=== PATIENT | female | born 2000 | race Native Hawaiian/Other Pacific Islander ===

== ENCOUNTER → 2020-09-29 | Outpatient (CLI) | payer OTHER ==
--- NOTE | 2020-09-29 15:22 | US ---
EXAMINATION TYPE: US OB anatomy transabd DATE OF EXAM: 09/29/2020 COMPARISON: NONE HISTORY: O36.62X0 LARGE FOR DATES LGA TECHNIQUE: Transabdominal (TA) EXAM MEASUREMENTS: GESTATIONAL AGE / DATING Physician Established: (25 weeks/3 days) EDC: 01/09/21 Dates by LMP: (25 weeks/3 days) EDC: 01/09/21 Dates by First Scan: no prior Dates by Current Scan for: (26 weeks/0 days) EDC: 01/05/21 SURVEY IUP: Single PLACENTA: Anterior PREVIA: No previa KANDI: 11.2 cm Normal CERVICAL LENGTH (transabdominal: norm > 3.0cm): 3.7 cm BIOMETRY PRESENTATION: Vertex LIE: Longitudinal BPD: 6.4 cm 25 weeks / 6 days HC: 24.0 cm 26 weeks / 1 days AC: 21.3 cm 25 weeks / 6 days FL: 4.7 cm 25 weeks / 5 days ESTIMATED WEIGHT IN GRAMS: 851 grams ESTIMATED WEIGHT IN LBS/OZ: 1 lbs. 14 oz. WEIGHT PERCENTAGE BASED ON ESTABLISHED DATE: 55 % HC/AC: 1.13 Normal FL/AC: 22% Normal HEART RATE: 135 bpm RHYTHM: Normal ANATOMY SEEN (within normal limits): * Lateral Vent (< 1 cm) 0.5 cm * Cisterna Magna (< 1.1 cm) 0.7 cm * Cerebellum (varies with age) 2.8 cm Choroid Plexus (bilateral) Midline Falx Cavus Septi Pellucidi Four Chamber Heart Outflow tracts: LVOT/RVOT Stomach Situs Nose / Lips Diaphragm Bladder Cord Insert Three Vessel Cord Longitudinal Spine Transverse Spine Arms (bilateral) Legs (bilateral) ANATOMY SEEN (does not appear within normal limits): Kidneys (bilateral) - dilated renal pelvis bilaterally = 0.4cm No abnormal cervical thickening. Single live intrauterine gestation is present. Normal cephalad prese ntation. biometry measurements congruent and within normal limits. No placenta previa. Calculat ed amniotic fluid index within normal limits. Mild to moderate bilateral pyelocaliectasis otherwise D etailed anatomical survey otherwise shows no obvious abnormality during real-time scanning. Still kartik ges saved show no obvious abnormality. Difficulty visualizing cardiac outflow tracts without cine cli ps. IMPRESSION: As above.
== END | disposition home or self-care (01) ==
LOC: RADUSWWP 13:40
PROVIDERS: ATTEND Obstetrics & Gynecology
DX: O99.891 Other specified diseases and conditions complicating pregnancy (principal); N28.89 Other specified disorders of kidney and ureter; Z3A.26 26 weeks gestation of pregnancy
CPT/HCPCS: 76811

== ENCOUNTER → 2020-12-10 | Outpatient (CLI) | payer OTHER ==
--- NOTE | 2020-12-11 13:13 | US ---
EXAMINATION TYPE: US OB >= 14 wk fetus DATE OF EXAM: 12/10/2020 COMPARISON: 09/29/2020 CLINICAL HISTORY: 20-year-old female O36.63X0 Large for dates > 35 Weeks. Large for dates TECHNIQUE: Transabdominal (TA) GESTATIONAL AGE / DATING Physician Established: (35 weeks/5 days) EDC: 01/09/2021 Dates by LMP: (35 weeks/5 days) EDC: 01/09/2021 Dates by First Scan: (36 weeks/2 days) EDC: 01/05/2021 Dates by Current Scan: (35 weeks/6 days) EDC: 01/08/2021 FINDINGS: SURVEY IUP: Single PLACENTA: Anterior PREVIA: No Previa KANDI: 13.9 cm Normal CERVICAL LENGTH (transabdominal: norm > 3.0cm): Not well visualized BIOMETRY PRESENTATION: Vertex LIE: Longitudinal BPD: 8.9 cm 36 weeks / 1 days HC: 31.4 cm 35 weeks / 2 days AC: 32.7 cm 36 weeks / 5 days FL: 6.8 cm 35 weeks / 0 days ESTIMATED WEIGHT IN GRAMS: 2815 grams ESTIMATED WEIGHT IN LBS/OZ: 6 lbs. 3 oz. WEIGHT PERCENTAGE BASED ON ESTABLISHED DATES: 43% HC/AC: .96 cm Normal FL/AC: 21% Normal HEART RATE: 144 bpm RHYTHM: Normal IMPRESSION: 1. Single live intrauterine pregnancies with estimated gestational age of 35 weeks 5 days by LMP. [facility] ultrasound biometry is concordant at 35 weeks 6 days (only 3 days less growth than expected comp ared to 09/29/2020). 2. EFW is 43% versus 55% on 09/29/2020.
== END | disposition home or self-care (01) ==
LOC: RADUSWWP 15:33
PROVIDERS: ATTEND Obstetrics & Gynecology
DX: O36.63X0 Maternal care for excessive fetal growth, third trimester, not applicable or unspecified (principal); Z3A.35 35 weeks gestation of pregnancy
CPT/HCPCS: 76805

== ENCOUNTER 2021-01-07 06:00 | Inpatient (IN) | payer OTHER ==
[2021-01-07] MEDS ORDERED: METHYLERGONOVINE 0.2 MG/ML 1 ML AMP IM PRN (07:10)
[2021-01-07] MEDS ORDERED: CARBOPROST TROMETHAMINE 250 MCG/ML 1 ML AMP IM PRN (07:10)
[2021-01-07] MEDS ORDERED: OXYTOCIN 10 UNIT/ML 1 ML VIAL IM PRN (07:10)
[2021-01-07] MEDS ORDERED: LIDOCAINE 0.5% (PF) 5 MG/ML (50 ML SDV) SQ PRN (07:10)
[2021-01-07] MEDS ORDERED: TERBUTALINE 1 MG/ML VIAL SQ PRN (07:10)
[2021-01-07] MEDS ORDERED: OXYTOCIN 30 UNITS/500 ML NS 30 UNIT in SALINE 1 500ML.BAG IV SCH (07:15)
[2021-01-07 07:28] LABS: Basophils % (A) 0 %; Eosinophils # (A) 0.3 k/uL (0-0.7); Eosinophils % (A) 2 %; HCT 37.2 % (34.0-46.0); HGB 12.8 gm/dL (11.4-16.0); Lymphocytes % (A) 23 %; MCH 30.8 pg (25.0-35.0); MCHC 34.5 g/dL (31.0-37.0); MCV 89.3 fL (80.0-100.0); Mean Platelet Volume 8.3; Monocytes # (A) 0.6 k/uL (0-1.0); Monocytes % (A) 5 %; Neutrophils # (A) 9.1 k/uL (1.3-7.7); Neutrophils % (A) 68 %; Platelet Count 270 k/uL (150-450); RBC 4.17 m/uL (3.80-5.40); RDW 12.9 % (11.5-15.5); WBC 13.3 k/uL (3.8-10.6)
[2021-01-07] MEDS: LACTATED RINGERS 1,000 ML IV SCH ×3 (07:31→14:39)
[2021-01-07] MEDS ORDERED: BENZOCAINE/MENTHOL SPRAY 1 GM/SPRAY AEROSOL TOPICAL PRN (17:17)
[2021-01-07] MEDS ORDERED: ZOLPIDEM 5 MG TAB PO PRN (17:17)
[2021-01-07] MEDS ORDERED: diphenhydrAMINE 25 MG CAP PO PRN (17:17)
[2021-01-07] MEDS ORDERED: diphenhydrAMINE 50 MG/ML 1 ML VIAL IVP PRN ×2 (17:17)
[2021-01-07] MEDS ORDERED: LANOLIN CREAM 5 GM TUBE TOPICAL PRN (17:17)
[2021-01-07] MEDS ORDERED: HYDROCORTISONE 2.5% RECTAL CREAM 30 GM TUBE RECTAL PRN (17:17)
[2021-01-07] MEDS ORDERED: diphenhydrAMINE 50 MG CAP PO PRN (17:17)
[2021-01-07] MEDS ORDERED: HYDROcodone/APAP 5-325MG 1 EACH TAB PO PRN (17:17)
[2021-01-07] MEDS ORDERED: SIMETHICONE 80 MG CHEWABLE PO PRN (17:17)
--- NOTE | 2021-01-07 17:20 | P.HPOB ---
History of Present Illness H&P Date: 01/07/21 Chief Complaint: Intrauterine at term: Induction of labor Patient is 20-year-old female at 39 weeks 5 days gestation who arrives for induction of labor. Her was, K by a great 3 placenta that she had nonstress tests the latter part of the and did well. Pertinent labs could A- blood type, Rh and it was negative, rubella is immune, hepatitis B surface antigen/RPR/GBS were all negative. She has a reactive nonstress test and artificial rupture membranes was performed and clear fluid is noted. All questions are answered for her and risks and benefits of induction are reviewed. Past Medical History Past Medical History: No Reported History History of Any Multi-Drug Resistant Organisms: MRSA Date of last positivie culture/infection: 2010 MDRO Source:: sores on both legs Additional Past Surgical History / Comment(s): stiches on nose from dog bite, [place] tooth extraction Past Anesthesia/Blood Transfusion Reactions: No Reported Reaction Past Psychological History: Depression Smoking Status: Never smoker Past Alcohol Use History: None Reported Past Drug Use History: None Reported - Past Family History Father Family Medical History: No Reported History Medications and Allergies Home Medications Medication Instructions Recorded Confirmed Type No Known Home Medications 01/07/21 01/07/21 History Allergies Allergy/AdvReac Type Severity Reaction Status Date / Time No Known Allergies Allergy Verified 01/07/21 07:09 Exam Osteopathic Statement: *. No significant issues noted on an osteopathic structural exam other than those noted in the History and Physical/Consult. Vital Signs Temp Pulse Resp BP 01/07/21 07:17 97.7 F 91 16 127/79 Intake and Output 01/07/21 01/07/21 01/07/21 06:59 14:59 22:59 Other: # Voids 3 Weight 83.007 kg - OBG Physical Exam Breast: both: normal (no masses) Abdomen: bowel sounds normal, no diffuse tenderness, no bruit present, no guarding noted, no hepatomegaly, no splenomegaly, no mass Vulva: both: normal Vagina: normal moisture, no discharge Cervix: no lesion, no discharge Uterus: normal size, normal contour Adnexa: both: normal Anus/Rectum: normal perianal skin, no rectal mass, no hemorrhoids, heme negative Results Result Diagrams: 05/20/21 06:50 Abnormal Lab Results - Last 24 Hours (Table) 01/07/21 Range/Units 06:50 WBC 13.3 H (3.8-10.6) k/uL Neutrophils # 9.1 H (1.3-7.7) k/uL
--- NOTE | 2021-01-07 17:21 | P.PROBDLV ---
Vaginal Delivery Note - . Vaginal Delivery Note: Iveth progressed to complete and pushed with spontaneous vaginal delivery of a viable male over a secondary perineal laceration. Falling deliver the head from left occiput anterior position nuchal cord 1 was noted and easily reduced. Gentle traction was then done to deliver the anterior posterior shoulders without difficulty mouth nares were then bulb suctioned and baby was placed on mother's abdomen where the umbilical cord was allowed to pulsate for 3 0 seconds prior to clamping and cutting. Once this was completed nursery personnel is present and assumed care. Placenta was then delivered intact Pitocin was added to the IV. No significant Secretions are noted on the placenta. A second degree perineal laceration was then repaired with 3-0 Vicryl following 1% Xylocaine for analgesia. scores were 9 and 9 at one and 5 minutes respectively and the weight was 7 lbs. 14 oz. Both mother and baby are stable following delivery.
[2021-01-07] MEDS: SENNOSIDES-DOCUSATE SODIUM 1 EACH TAB PO SCH (19:20)
[2021-01-07] MEDS: IBUPROFEN 600 MG TAB PO SCH (19:20)
[2021-01-07] MEDS ORDERED: ROPIVACAINE 100 MG, fentaNYL (PF). 200 MCG in SODIUM CHLORIDE 0.9% 76 ML EPIDURAL ONE (20:09)
[2021-01-08] MEDS: IBUPROFEN 600 MG TAB PO SCH ×5 (01:32→23:28)
[2021-01-08 07:32] LABS: Basophils % (A) 0 %; Eosinophils # (A) 0.2 k/uL (0-0.7); Eosinophils % (A) 2 %; HCT 34.4 % (34.0-46.0); HGB 11.9 gm/dL (11.4-16.0); Lymphocytes # (A) 3.1 k/uL (1.0-4.8); Lymphocytes % (A) 21 %; MCH 30.9 pg (25.0-35.0); MCHC 34.5 g/dL (31.0-37.0); MCV 89.7 fL (80.0-100.0); Mean Platelet Volume 8.2; Monocytes # (A) 0.8 k/uL (0-1.0); Monocytes % (A) 5 %; Neutrophils # (A) 10.2 k/uL (1.3-7.7); Neutrophils % (A) 70 %; Platelet Count 240 k/uL (150-450); RBC 3.84 m/uL (3.80-5.40); RDW 13.1 % (11.5-15.5); WBC 14.5 k/uL (3.8-10.6)
[2021-01-08] MEDS: SENNOSIDES-DOCUSATE SODIUM 1 EACH TAB PO SCH ×2 (07:34→19:46)
--- NOTE | 2021-01-08 08:54 | P.DS ---
Providers Date of admission: 01/07/21 06:35 Expected date of discharge: 01/08/21 Attending physician: Joaquim Jiménez Primary care physician: Stated None Hospital Course: Iveth is doing very well day 1. She is ambulating, voiding and tolerating her diet. She voices no placed. Vital signs are stable and afebrile. Heart regular, lungs clear, extremities are without pain. Abdomen soft and uterus is firm. Lochia is reported to be light. Assessment day 1. Plan discharged home follow up with me in 6 weeks. Patient Condition at Discharge: Good Plan - Discharge Summary New Discharge Prescriptions: New Ibuprofen [Motrin] 600 mg PO Q6HR PRN #30 tab PRN Reason: Pain Discharge Medication List Ibuprofen [Motrin] 600 mg PO Q6HR PRN #30 tab 01/08/21 [Rx] Follow up Appointment(s)/Referral(s): Joaquim Jiménez DO [Doctor of Osteopathic Medicine] - 02/17/21 11:00 am Activity/Diet/Wound Care/Special Instructions: No heavy lifting, limit stairs and driving, and pelvic rest. If any high temperatures, heavy bleeding, or severe pain call my office Discharge Disposition: HOME SELF-CARE
[2021-01-08] MEDS: ACETAMINOPHEN TAB 325 MG TAB PO PRN (19:46)
[2021-01-09 00:06] VITALS: PULSE 71
[2021-01-09] MEDS: ACETAMINOPHEN TAB 325 MG TAB PO PRN ×2 (04:24→12:13)
[2021-01-09] MEDS: IBUPROFEN 600 MG TAB PO SCH ×2 (06:49→13:09)
[2021-01-09 10:28] VITALS: BP 110/65; RESP 16; TEMP 98.4
[2021-01-09] MEDS: SENNOSIDES-DOCUSATE SODIUM 1 EACH TAB PO SCH ×2 (10:30→12:13)
== END 2021-01-09 14:48 | disposition home or self-care (01) | DRG 807 ==
LOC: 4FBP 06:35
PROVIDERS: ADMIT Obstetrics & Gynecology; ATTEND Obstetrics & Gynecology
PROC: 10E0XZZ Delivery of Products of Conception, External Approach (ICD-10-PCS; principal; 2021-01-07)
PROC: 0KQM0ZZ Repair Perineum Muscle, Open Approach (ICD-10-PCS; 2021-01-07)
DX: O69.81X0 Labor and delivery complicated by cord around neck, without compression, not applicable or unspecified (principal); Z37.0 Single live birth; O70.1 Second degree perineal laceration during delivery; Z3A.39 39 weeks gestation of pregnancy
CPT/HCPCS: 85025; 86850; 86900; 86901